=== PATIENT | female | born 1990 | race African-American/Black ===

== ENCOUNTER 2016-09-22 15:18 | Emergency (ER) | payer OTHER ==
[~2016-09-22] VITALS: Ht 157.5 cm; Wt 68.0 kg
[~2016-09-22 15:18] MED LIST: LORA-250; PARO10TA26
[2016-09-22 15:23] VITALS: BP 146/96
== END 2016-09-22 19:00 | disposition left against medical advice (07) ==
LOC: ER 15:19
DX: Z53.21 Procedure and treatment not carried out due to patient leaving prior to being seen by health care provider (principal)

== ENCOUNTER 2017-08-16 16:32 | Emergency (ER) | payer OTHER ==
[~2017-08-16] VITALS: Ht 157.5 cm; Wt 68.0 kg
[~2017-08-16 16:32] MED LIST changes: -PARO10TA26; +PARO10TA87
[2017-08-16 17:02] VITALS: BP 132/53
[2017-08-16] MEDS ORDERED: IBUPROFEN 400MG TABLET PO ONE (17:15)
[2017-08-16 17:31] LABS: CLARITY URINE CLEAR (CLEAR); COLOR URINE YELLOW (YELLOW); KETONES URINE TRACE (NEGATIVE); LEUKOCYTE ESTERASE URINE NEGATIVE (NEGATIVE); NITRITE URINE NEGATIVE (NEGATIVE); OCCULT BLOOD URINE NEGATIVE (NEGATIVE); PH URINE 5.5 (4.5-8.0); PROTEIN URINE NEGATIVE (NEGATIVE); SPECIFIC GRAVITY URINE 1.032 (1.005-1.030); UROBILINOGEN URINE 0.2 E.U./dL (0.2-1.0)
[2017-08-16 17:45] LABS: *AMPHETAMINES SCREEN URINE NEGATIVE (NEGATIVE); *BARBITURATES SCREEN URINE NEGATIVE (NEGATIVE); *BENZODIAZEPINES SCREEN URINE NEGATIVE (NEGATIVE); *COCAINE SCREEN URINE NEGATIVE (NEGATIVE); METHADONE URINE SCREEN NEGATIVE (NEGATIVE); OPIATES URINE SCREEN NEGATIVE (NEGATIVE); PHENCYCLIDINE URINE SCREEN NEGATIVE (NEGATIVE)
[2017-08-16 17:49] LABS: CANNABINOID URINE SCREEN PRESUMTIVE POSITIVE (NEGATIVE)
== END 2017-08-16 20:18 | disposition left against medical advice (07) ==
LOC: ER 17:29
DX: R10.33 Periumbilical pain (principal); R05 Cough; R50.9 Fever, unspecified; F12.10 Cannabis abuse, uncomplicated
CPT/HCPCS: 80305; 81003; 81025; 87804; 99284

== ENCOUNTER 2017-11-26 15:45 | Emergency (ER) | payer SELFPAY ==
[~2017-11-26] VITALS: Ht 157.5 cm; Wt 62.0 kg
[2017-11-26] MEDS ORDERED: TRAMADOL 50MG TABLET PO ONE (18:30)
[2017-11-26 20:30] VITALS: BP 128/74
== END 2017-11-26 20:30 | disposition home or self-care (01) ==
LOC: ER 16:24
DX: S62.616A Displaced fracture of proximal phalanx of right little finger, initial encounter for closed fracture (principal); M54.5 Low back pain; R10.2 Pelvic and perineal pain; F17.200 Nicotine dependence, unspecified, uncomplicated; Z98.890 Other specified postprocedural states; V89.2XXA Person injured in unspecified motor-vehicle accident, traffic, initial encounter; Y93.89 Activity, other specified; Y92.89 Other specified places as the place of occurrence of the external cause; Y99.8 Other external cause status
CPT/HCPCS: 29130; 72100; 72170; 73140; 81025; 99284